=== PATIENT | female | born 2000 | race American Indian/Alaskan Native ===

== ENCOUNTER 2020-05-28 13:45 | Emergency (ER) | payer MEDICAID ==
--- NOTE | 2020-05-28 13:51 | Event Note ---
ED Screening Note ED Screening Note: suprapubic pain lmp end of Fe vag dc mild fever co for sti 1 sexual partner This initial assessment/diagnostic orders/clinical plan/treatment(s) is/are subject to change based on patients health status, clinical progression and re- assessment by fellow clinical providers in the ED. Further treatment and workup at subsequent clinical providers discretion. Patient/guardian urged not to elope from the ED as their condition may be serious if not clinically assessed and managed. Initial orders include: ro preg/uti/sti
[2020-05-28 14:39] LABS: Hematocrit 41.7 % (30.3-42.9); Hemoglobin 14.1 gm/dl (10.1-14.3); Mean Corpuscular HGB Conc 34 % (30-34); Mean Corpuscular Volume 84 fl (79-97); Platelet Count 264 K/mm3 (140-440); Red Blood Count 4.98 M/mm3 (3.65-5.03); Red Cell Distribution Width 13.7 % (13.2-15.2)
[2020-05-28] MEDS ORDERED: ACETAMINOPHEN 325 MG TAB PO ONE (15:31)
--- NOTE | 2020-05-28 15:32 | Emergency Department Report ---
<MARY SIMENTAL - Last Filed: 05/28/20 16:39> ED Abdominal Pain HPI - General Chief Complaint: Abdominal Pain Stated Complaint: LT SHOULDER PAIN/ABD PAIN/MISSED PERIOD Time Seen by Provider: 05/28/20 13:49 Source: patient Mode of arrival: Ambulatory Limitations: No Limitations - History of Present Illness Initial Comments: 19-year-old female with no significant past medical history presents to the ER today with complaints of left lower quadrant abdominal pain. She also is having left shoulder pain. She states that both her symptoms started about 2 weeks ago. She states that the left lower quadrant abdominal pain has been intermittent in nature, and she is also having a white discharge with it. She states that her last menstrual cycle was May 15, 2020. She states that she is late on this. She states that she took a test at home 4 days ago it was positive then she took another test 3 days ago and it was negative. She denies any abnormal vaginal bleeding. She denies any UTI symptoms. She states that she is concerned that the left shoulder pain is related to her abdominal pain. She states that she was told by a friend who had an ectopic that left shoulder pain could be related to her having an ectopic . Patient denies any injury to her left shoulder. She states that it hurts when she moves the left shoulder. She denies any associated chest pain, upper extremity weakness, numbness, neck pain or any other symptoms. She states that she has never been before. MD Complaint: abdominal pain -: week(s) (2) - Related Data Previous Rx's Medication Instructions Recorded Last Taken Type metroNIDAZOLE [Flagyl] 500 mg PO Q12HR #14 tab 05/28/20 Unknown Rx Allergies Allergy/AdvReac Type Severity Reaction Status Date / Time No Known Allergies Allergy Unverified 12/28/13 16:45 ED Review of Systems Comment: All other systems reviewed and negative Constitutional: denies: chills, fever Eyes: denies: eye pain, eye discharge, vision change ENT: denies: ear pain, throat pain, dental pain, hearing loss, epistaxis, congestion Respiratory: denies: cough, shortness of breath, wheezing Gastrointestinal: abdominal pain. denies: nausea, vomiting, diarrhea, constipation, hematemesis, melena Genitourinary: discharge. denies: urgency, dysuria, frequency, hematuria, abnormal menses, dyspareunia Musculoskeletal: arthralgia. denies: back pain, joint swelling Skin: denies: rash, lesions Neurological: denies: headache, weakness, paresthesias Psychiatric: denies: anxiety, depression Hematological/Lymphatic: denies: easy bleeding, easy bruising ED Past Medical Hx - Past Medical History Hx Psychiatric Treatment: Yes (Counseling) Additional medical history: ADHD. Oppositional behavior disorder - Social History Smoking Status: Never Smoker - Medications Home Medications: Home Medications Medication Instructions Recorded Confirmed Last Taken Type metroNIDAZOLE [Flagyl] 500 mg PO Q12HR #14 tab 05/28/20 Unknown Rx ED Physical Exam - General Limitations: No Limitations General appearance: alert, in no apparent distress - Head Head exam: Present: atraumatic, normocephalic, normal inspection - Neck Neck exam: Present: normal inspection, full ROM. Absent: tenderness - Respiratory Respiratory exam: Present: normal lung sounds bilaterally. Absent: respiratory distress - Cardiovascular Cardiovascular Exam: Present: regular rate, normal rhythm, normal heart sounds - GI/Abdominal GI/Abdominal exam: Present: soft, tenderness (Mild tenderness lower quadrant). Absent: distended, guarding, rebound, rigid - External exam: Present: normal external exam Speculum exam: Present: vaginal discharge (Moderate amount of white discharge), other (Cervical os is closed). Absent: vaginal bleeding Bi-manual exam: Present: adnexal tenderness (Left side). Absent: cervical motion tendernes, adnexal mass - Extremities Exam Extremities exam: Present: other (TTP left trapezius muscle. No cervical spine o r shoulder joint TTP. She has full ROM of neck and shoulder without any issues. ) - Neurological Exam Neurological exam: Present: alert, oriented X3, CN II-XII intact, normal gait - Psychiatric Psychiatric exam: Present: normal affect, normal mood - Skin Skin exam: Present: intact ED Medical Decision Making - Lab Data Result diagrams: 05/28/20 14:01 05/28/20 14:01 - Medical Decision Making CBC, BMP, and urine reviewed. Wet prep also reviewed. Quant is pending. The patient's care has been transferred to and accepted by[Yesika See NP]. We discussed: The patient's chief complaints; labs and imaging that have been completed and those that are still pending; procedures that have been completed and those remaining to be done; any treatment provided and the patient's response to treatment; any significant change in condition; input from consultants if any; the treatment plan prior to the transfer of care. The accepting provider will follow up on all pending labs and imaging and make any necessary changes to the current impression and/or treatment plan. The a ccepting physician/midlevel is now responsible for the patient's care and final disposition. ED Disposition Clinical Impression: Bacterial vaginosis, Trapezius muscle spasm, Disposition: DC-01 TO HOME OR SELFCARE Condition: Stable Instructions: First Trimester of , [id number], Bacterial Vaginosis, Bacterial Vaginosis (ED), Abdominal Pain (ED) Additional Instructions: PELVIC REST HYDRATE WELL WITH WATER MED ORDERED TODAY SEXUAL PARTNERS SHOULD BE TESTED FOR STI TYLENOL IS SAFE FOR PAIN FOLLOW UP WITH OBGYN IN 48 HOURS FOR REPEAT LABS REFERRAL BELOW Prescriptions: metroNIDAZOLE [Flagyl] 500 mg PO Q12HR #14 tab Referrals: PRIMARY CARE, [Primary Care Provider] - 3-5 Days Forms: STI Treatment and Prevention <YESIKA BALDWIN - Last Filed: 05/28/20 18:55> ED Review of Systems ROS: Stated complaint: LT SHOULDER PAIN/ABD PAIN/MISSED PERIOD Other details as noted in HPI ED Course Vital Signs 05/28/20 05/28/20 05/28/20 13:49 16:23 16:25 Temperature 100.1 F H Pulse Rate 100 H 82 Respiratory 18 18 17 Rate Blood Pressure 111/74 Blood Pressure 105/63 [Left] O2 Sat by Pulse 98 100 Oximetry 05/28/20 05/28/20 18:46 18:48 Temperature Pulse Rate 89 Respiratory 18 Rate Blood Pressure Blood Pressure 121/52 [Left] O2 Sat by Pulse 100 Oximetry ED Medical Decision Making - Lab Data Result diagrams: 05/28/20 14:01 05/28/20 14:01 - Radiology Data Radiology results: report reviewed, image reviewed SEE REPORT - Medical Decision Making UA NOTED WET PREP NOTED LABS NOTED US NOTED EMPIRIC TREATMENT WITH ROCEPHIN AND AZITHRO VSS TAKING PO NON ILL NON TOXIC ON DC Vital Signs 05/28/20 05/28/20 05/28/20 13:49 16:23 16:25 Temperature 100.1 F H Pulse Rate 100 H 82 Respiratory 18 18 17 Rate Blood Pressure 111/74 Blood Pressure 105/63 [Left] O2 Sat by Pulse 98 100 Oximetry 05/28/20 05/28/20 18:46 18:48 Temperature Pulse Rate 89 Respiratory 18 Rate Blood Pressure Blood Pressure 121/52 [Left] O2 Sat by Pulse 100 Oximetry Lab Results 05/28/20 05/28/20 05/28/20 Range/Units 14:01 14:01 14:01 WBC 6.2 (4.5-11.0) K/mm3 RBC 4.98 (3.65-5.03) M/mm3 Hgb 14.1 (10.1-14.3) gm/dl Hct 41.7 (30.3-42.9) % MCV 84 (79-97) fl MCH 28 (28-32) pg MCHC 34 (30-34) % RDW 13.7 (13.2-15.2) % Plt Count 264 (140-440) K/mm3 Sodium 136 L (137-145) mmol/L Potassium 4.3 (3.6-5.0) mmol/L Chloride 100.9 (98-107) mmol/L Carbon Dioxide 25 (22-30) mmol/L Anion Gap 14 mmol/L BUN 9 (7-17) mg/dL Creatinine 0.7 (0.6-1.2) mg/dL Estimated GFR > 60 ml/min BUN/Creatinine Ratio 13 % Glucose 94 (65-100) mg/dL Calcium 9.5 (8.4-10.2) mg/dL HCG, Quant 1218 H (0-4) mIU/mL Urine Color (Yellow) Urine Turbidity (Clear) Urine pH (5.0-7.0) Ur Specific [place] (1.003-1.030) Urine Protein (Negative) mg/dL Urine Glucose (UA) (Negative) mg/dL Urine Ketones (Negative) mg/dL Urine Blood (Negative) Urine Nitrite (Negative) Urine Bilirubin (Negative) Urine Urobilinogen (<2.0) mg/dL Ur Leukocyte Esterase (Negative) Urine WBC (Auto) (0.0-6.0) /HPF Urine RBC (Auto) (0.0-6.0) /HPF U Epithel Cells (Auto) (0-13.0) /HPF Urine Mucus /HPF 05/28/20 Range/Units 15:22 WBC (4.5-11.0) K/mm3 RBC (3.65-5.03) M/mm3 Hgb (10.1-14.3) gm/dl Hct (30.3-42.9) % MCV (79-97) fl MCH (28-32) pg MCHC (30-34) % RDW (13.2-15.2) % Plt Count (140-440) K/mm3 Sodium (137-145) mmol/L Potassium (3.6-5.0) mmol/L Chloride (98-107) mmol/L Carbon Dioxide (22-30) mmol/L Anion Gap mmol/L BUN (7-17) mg/dL Creatinine (0.6-1.2) mg/dL Estimated GFR ml/min BUN/Creatinine Ratio % Glucose (65-100) mg/dL Calcium (8.4-10.2) mg/dL HCG, Quant (0-4) mIU/mL Urine Color Yellow (Yellow) Urine Turbidity Clear (Clear) Urine pH 6.0 (5.0-7.0) Ur Specific [place] 1.021 (1.003-1.030) Urine Protein <15 mg/dl (Negative) mg/dL Urine Glucose (UA) Neg (Negative) mg/dL Urine Ketones Neg (Negative) mg/dL Urine Blood Neg (Negative) Urine Nitrite Neg (Negative) Urine Bilirubin Neg (Negative) Urine Urobilinogen 2.0 (<2.0) mg/dL Ur Leukocyte Esterase Neg (Negative) Urine WBC (Auto) < 1.0 (0.0-6.0) /HPF Urine RBC (Auto) 2.0 (0.0-6.0) /HPF U Epithel Cells (Auto) 1.0 (0-13.0) /HPF Urine Mucus Few /HPF PT BEING DC HOME OF [facility] AND WITH OBGYN FOLLOW UP SHE UNDERSTANDS SHE NEEDS REPEAT LABS AT OB IN 48 HOURS SEE DISCHARGE INSTRUCTIONS. - Differential Diagnosis PREG/UTI/STI/PID/ECTOPIC/AB Critical care attestation.: If time is entered above; I have spent that time in minutes in the direct care of this critically ill patient, excluding procedure time. ED Disposition Is pt being admited?: No Does the pt Need Aspirin: No Time of Disposition: 18:54
[2020-05-28 15:36] LABS: Bilirubin,Urine NEG (Negative); Blood,Urine NEG (Negative); Color,Urine Yellow (Yellow); Mucus,Urine FEW /HPF; Protein,Urine <15 mg/dL mg/dL (Negative); WBC,Urine < 1.0 /HPF (0.0-6.0)
[2020-05-28 16:27] LABS: Blood Urea Nitrogen 9 mg/dL (7-17); Calcium 9.5 mg/dL (8.4-10.2); Hemolysis Index 13
[2020-05-28 16:28] LABS: BUN/Creatinine Ratio 13
--- NOTE | 2020-05-28 18:46 | Ultrasound Report ---
ULTRASOUND OBSTETRIC INDICATION: CRAMPING AND . TECHNIQUE: Transabdominal and Transvaginal. COMPARISON: None available. FINDINGS: GESTATIONAL SAC: Questionable small intrauterine gestational sac measuring 5 mm, consistent with an a ge of 5 weeks, 2 days. YOLK SAC: None seen. EMBRYO/FETUS: None seen. ADNEXA: No significant abnormality. FREE FLUID: None. ADDITIONAL FINDINGS: None. IMPRESSION: Questionable early intrauterine gestational sac without visualization of a yolk sac or pole. Cl ose clinical and imaging follow-up is recommended. Signer Name: Troy Aldana MD Signed: 05/28/2020 6:42 PM Workstation Name: [id number]
[2020-05-28] MEDS ORDERED: LIDOCAINE-MPF (1%) 10 MG/1 ML VIAL 5 ML INFILTRATI ONE (18:47)
[2020-05-28] MEDS ORDERED: AZITHROMYCIN 250 MG TAB PO ONE (18:48)
[2020-05-28 18:49] VITALS: BP 121/52
== END 2020-05-28 19:15 | disposition home or self-care (01) ==
LOC: ED 13:45
DX: O23.591 Infection of other part of genital tract in pregnancy, first trimester (principal); B96.89 Other specified bacterial agents as the cause of diseases classified elsewhere; M62.838 Other muscle spasm; Z3A.01 Less than 8 weeks gestation of pregnancy; Z79.899 Other long term (current) drug therapy
CPT/HCPCS: 36415; 76801; 76817; 80048; 81001; 84702; 85027; 87210; 87591; 96372; 99284; J0696